=== PATIENT | female | born 1995 | race Caucasian/White ===

== ENCOUNTER 2019-06-24 09:22 | Day surgery (SDC) | payer OTHER ==
[2019-06-24 10:34] LABS: BHCG - Serum Negative (NEGATIVE); Pregs Control Background? CLEAR/WHITE (CLR/WHITE); Pregs Control Bar Appear? YES (CONTROL BAR)
[2019-06-24] MEDS ORDERED: PROPOFOL 200 MG/20 ML VIAL ONE (11:11)
--- NOTE | 2019-06-24 12:01 | OP ---
DATE OF PROCEDURE: 06/24/2019 [facility] COORDINATOR SURGEON: None. PROCEDURES PERFORMED: 1. Esophagogastroduodenoscopy with biopsies. 2. Colonoscopy, diagnostic. INDICATION: A 23-year-old woman with persistent periumbilical abdominal pain, and multiple prior episodes of transient hematochezia. MEDICATIONS: See Anesthesia record. FINDINGS: After discussion of the risks, benefits, and alternatives of the procedure, informed consent was obtained and witnessed. Pre-endoscopic cardiopulmonary examination was satisfactory. Time-out was performed before sedation was achieved. Sedation was achieved with Anesthesia assistance in the endoscopy unit. A Pentax adult upper endoscope was placed into the oropharynx and passed through the cricopharyngeus under direct visualization. The esophageal mucosa appeared normal throughout with a normal-appearing Z-line. The endoscope was advanced into the stomach. Forward and retroflexed views of the entire gastric mucosa were obtained. The gastric fundus and body appeared normal. In the gastric antrum, there is patchy erythema as well as a few shallow nonbleeding erosions. Biopsies were obtained from the gastric antrum and body to rule out H. pylori infection. The endoscope was advanced through the pylorus and into the first and second portions of the duodenum, which appeared normal. The upper endoscope was then completely withdrawn and the patient was repositioned. Digital rectal exam was performed, which was unremarkable. A Pentax adult colonoscope was inserted into the anus and passed forward to the cecum in the usual fashion. The cecal base was identified by the appendiceal orifice as well as the ileocecal valve. The terminal ileum was intubated and the ileal mucosa appeared normal. The colonoscope was then slowly withdrawn in a gradual and circumferential manner with careful examination of the entire colonic mucosa. The quality of the prep was good. The colonic mucosa appeared normal throughout. There was no evidence of any inflammatory features. No polyps or mass lesions. Retroflexion in the rectum appeared normal. The colonoscope was completely withdrawn and the procedure was completed. The patient tolerated the procedure well. There were no immediate postprocedure complications. IMPRESSION: 1. Erosive gastritis in the antrum, biopsied to rule out Helicobacter pylori. 2. Otherwise normal esophagogastroduodenoscopy. 3. Normal colonoscopy to the terminal ileum. RECOMMENDATION: 1. Start pantoprazole 40 mg by mouth once daily. 2. Follow up results of gastric biopsies. 3. Clinic followup in about 1 month. Job ID: [id number]
== END 2019-06-24 12:50 | disposition home or self-care (01) ==
LOC: SDC 09:22
PROVIDERS: ATTEND Internal Medicine
PROC: 0DB68ZX Excision of Stomach, Via Natural or Artificial Opening Endoscopic, Diagnostic (ICD-10-PCS; principal; 2019-06-24)
PROC: 0DJD8ZZ Inspection of Lower Intestinal Tract, Via Natural or Artificial Opening Endoscopic (ICD-10-PCS; principal; 2019-06-24)
DX: K92.1 Melena (principal); K29.60 Other gastritis without bleeding; E66.9 Obesity, unspecified; Z68.42 Body mass index [BMI] 45.0-49.9, adult; Z79.899 Other long term (current) drug therapy
CPT/HCPCS: 84703; 88305; 88312; J2704